=== PATIENT | female | born 1975 | race Caucasian/White ===

== ENCOUNTER 2024-01-13 16:24 | Emergency (ER) | payer OTHER, SELFPAY ==
[2024-01-13 17:18] VITALS: BP 114/93; PULSE 132; RESP 20; TEMP 37.4; O2SAT 98; BMI 29.3
--- NOTE | 2024-01-13 17:19 | ED_ITS ---
HPI - Nausea/Vomiting/Diarrhea General Chief complaint: Nausea/Vomiting/Diarrhea Stated complaint: vomiting 4 days/diabetic type1 Time Seen by Provider: 01/13/24 22:03 Source: patient Mode of arrival: ambulatory Limitations: no limitations History of Present Illness HPI Narrative: Patient comes to the emergency room complaining of nausea and vomiting. Patient states that she is known to be diabetic type 1, tries to keep her glucose well under control. Patient states that occasionally she gets gastroparesis but today she vomited more than usual. Patient denies significant abdominal pain, no diarrhea. Denies URI or UTI symptoms Related Data Allergies Allergy/AdvReac Type Severity Reaction Status Date / Time acetaminophen [From Tylox] Allergy Unknown Verified 01/13/24 17:23 oxycodone [From Tylox] Allergy Unknown Verified 01/13/24 17:23 prochlorperazine Allergy Unknown Verified 01/13/24 17:23 [From Compazine] morphine AdvReac Vomiting Verified 01/13/24 17:23 Sulfa (Sulfonamide AdvReac Vomiting Verified 01/13/24 17:23 Antibiotics) Review of Systems 2 Review of Systems: Constitutional : No Weight loss, No Fever, No Chills, No Night Sweats, No Fatigue, No Malaise ENT/Mouth : No Hearing loss, No Ear Pain, No Nasal Congestion, No Sinus Pain, No Hoarseness, No sore throat, No Rhinorrhea, No Swallowing Difficulty Eyes: No Eye Pain, No Swelling, No Redness, No Foreign Body, No Discharge, No Vision Changes Cardiovascular : No Chest Pain, No SOB, No Dyspnea on Exertion, No Orthopnea, No Edema, No Palpitations Respiratory : No Cough, No Sputum, No Wheezing, No Smoke Exposure, No Dyspnea Gastrointestinal : Complaining of nausea and vomiting, No Diarrhea, No Constipation, No abdominal Pain, No Hematochezia, No Melena Genitourinary : no irregular bleeding, No Dysuria, No Urinary Frequency, No Hematuria, No Urinary Incontinence, No Urgency, No Flank Pain, No Urinary Flow Changes, No Hesitancy Musculoskeletal : No joint pain, No Myalgias, No Joint Swelling Skin : No Skin Lesions, No rash Neuro : No Weakness, No Numbness, No Paresthesias, No Loss of Consciousness, No Dizziness, No Headache Psych : No Anxiety/Panic, No Depression, No SI/HI/AH/VH, No Social Issues, Heme/Lymph: No Bruising, No Bleeding,No Lymphadenopathy Endocrine : No Polyuria, No Polydipsia, No Temperature Intolerance [facility] Past Medical History Medical History (Updated 01/13/24 @ 23:47 by Rebecca Hernandez MD) Type 1 diabetes Social History Social History Advance Directives: No Advance Directives Information Provided: No Physical Exam 2 Vital Signs: Vital Signs: Last Vital Signs Temp 98.0 F 01/13/24 20:51 Pulse 104 H 01/13/24 20:51 Resp 18 01/13/24 20:51 BP 114/93 H 01/13/24 20:51 Pulse Ox 96 01/13/24 20:51 O2 Del Method Room Air 01/13/24 20:51 BMI result Body Mass Index 29.3 Course Course Course Narrative: This is a Rapid Medical Examination (RME) in triage, full HPI, ROS, assessment and plan per primary provider in the Main ED. Eli is a 48 year old female with DMI, who reports vomiting for 4 days. No diarrhea or abdominal pain. Per patient and CGM, BS is 355. Normally BS are well-controlled. Past few days ~150's. Unable to tolerate PO, reports vomiting after eating or drinking. Plan: labs, IVF, r/o DKA Medications Administered Discontinued Medications Generic Name Dose Route Start Last Admin Trade Name Freq PRN Reason Stop Dose Admin Sodium Chloride 1,000 mls @ 999 mls/hr 01/13/24 17:30 01/13/24 21:26 Ns IV 01/13/24 18:30 Infused .Q1H1M [facility] Infusion Sodium Chloride 1,000 mls @ 999 mls/hr 01/13/24 18:30 01/13/24 23:19 Ns IVCONT 01/13/24 19:30 Infused .Q1H1M [facility] In[facility] Metoclopramide HCl 10 mg 01/13/24 17:21 01/13/24 19:19 Metoclopramide Hcl 10 Mg/2 Ml Vial IVPUSH 01/13/24 17:22 10 mg ONCE ONE Administration Ondansetron HCl 4 mg 01/13/24 22:13 01/13/24 22:45 Ondansetron Hcl 4 Mg/2 Ml Vial IVPUSH 01/13/24 22:14 4 mg ONCE ONE Administration Medical Decision Making Medical Decision Making MDM Narrative: -my interpretation of labs normal hematology, chemistry shows a creatinine of 2.17, no previous labs for comparison, glucose 235, anion gap open 25, LFTs within normal limits, magnesium normal, beta hydroxybutyrate 5.4 -patient received 2 L of lactated Ringer's we will repeat the beta hydroxybutyrate -patient states that she has never been told anything about having creatinine function that is elevated. -discussed with the patient that after 2 L, her kidneys did improve but not as much as we were expecting it to. Her beta hydroxybutyrate increased instead of improving, the anion gap is still open -discussed with the patient that she needs more fluids, insulin, and I recommend admission to the hospital. -patient declined, states that she has to be in the airport in 3 hours and still has to go home and pack for the trip. This is her honeymoon trip. States she does not want to miss it. -patient leaving against medical advice, patient instructed to drink plenty of fluids with electrolytes and check her electrolyte function with her primary care physician as soon as she returns. Also, to seek medical attention if needed during a trip Differential Diagnosis Differential Diagnoses: The differential diagnosis associated with the presentation includes (Dehydration, acute kidney injury, DKA) Admission/Observation Consideration of admission/observation: Escalation of care including admission/observation considered (Admission recommended, patient declined) Lab Data [facility] Lab Attestation statement: I reviewed the patient's lab results. 01/13/24 17:35 01/13/24 22:38 Labs: Lab Results 01/13/24 01/13/24 01/13/24 Range/Units 17:35 17:39 19:19 WBC 7.1 (4.8-10.8) X10*3/uL RBC 4.27 (4.20-5.50) X10*6/uL Hgb 13.4 (12.0-16.0) g/dl Hct 39.2 (37.0-47.0) % MCV 91.8 (80.0-98.0) fL MCH 31.4 (27.0-33.0) pg MCHC 34.2 (31.0-35.0) g/dl RDW 12.4 (11.0-16.0) % Plt Count 305 (160-400) X10*3/uL MPV 9.7 (9.4-12.3) fL Immature Gran % (Auto) 0.3 (0.0-0.4) % Neut % (Auto) 79.7 H (45-73) % Lymph % (Auto) 12.1 L (20-40) % [place] % (Auto) 7.3 (2-11) % Eos % (Auto) 0.0 (0-4) % Baso % (Auto) 0.6 (0-2) % Lymph # (Auto) 0.9 L (1.2-4.9) X10*3/uL [place] # (Auto) 0.5 (0.1-1.2) X10*3/uL Eos # (Auto) 0.0 (0.0-0.4) X10*3/uL Baso # (Auto) 0.0 (0.0-0.2) X10*3/uL Abs Immat Gran (auto) 0.02 (0.00-0.03) X10*3/uL Absolute Neuts (auto) 5.7 (2.0-8.3) x10*3/uL Absolute Nucleated RBC 0.000 (0.0-0.012) X10*3/uL Nucleated RBC % (auto) 0.0 (0.0-0.2) /100WBC VBG pH 7.47 H (7.32-7.43) VBG pCO2 36 mmHg VBG pO2 59 mmHg VBG HCO3 27 H (22-26) mmol/L VBG O2 Saturation 89.0 % VBG Base Excess 3.5 mmol/L Sodium 137 (135-145) mmol/L Potassium 3.8 (3.3-5.1) mmol/L Chloride 91 L (96-108) mmol/L Carbon Dioxide 25 (22-29) mmol/L Anion Gap 25 H (12-20) BUN 39 H (9-16) mg/dL Creatinine 2.17 H (0.5-1.4) mg/dL Estim Creat Clear Calc 26.9 Estimated GFR 24 POC Glucose 235 H (60-115) mg/dL Random Glucose 272 H (60-115) mg/dL Calcium 9.6 (8.4-10.2) mg/dL Magnesium 2.0 (1.6-2.6) mg/dL Total Bilirubin 0.9 (0.0-1.0) mg/dL Direct Bilirubin 0.3 (0.0-0.5) mg/dL AST 26 (5-31) U/L ALT 20 (0-31) U/L Alkaline Phosphatase 108 (39-117) U/L B-Natriuretic Peptide (<100) pg/mL Total Protein 7.8 (6.5-8.0) g/dL Albumin 4.5 (3.5-5.0) g/dL Lipase 20 (8-78) U/L Beta-Hydroxybutyrate 5.14 H (0.02-0.27) mmol/L 01/13/24 01/13/24 Range/Units 22:17 22:38 WBC (4.8-10.8) X10*3/uL RBC (4.20-5.50) X10*6/uL Hgb (12.0-16.0) g/dl Hct (37.0-47.0) % MCV (80.0-98.0) fL MCH (27.0-33.0) pg MCHC (31.0-35.0) g/dl RDW (11.0-16.0) % Plt Count (160-400) X10*3/uL MPV (9.4-12.3) fL Immature Gran % (Auto) (0.0-0.4) % Neut % (Auto) (45-73) % Lymph % (Auto) (20-40) % [place] % (Auto) (2-11) % Eos % (Auto) (0-4) % Baso % (Auto) (0-2) % Lymph # (Auto) (1.2-4.9) X10*3/uL [place] # (Auto) (0.1-1.2) X10*3/uL Eos # (Auto) (0.0-0.4) X10*3/uL Baso # (Auto) (0.0-0.2) X10*3/uL Abs Immat Gran (auto) (0.00-0.03) X10*3/uL Absolute Neuts (auto) (2.0-8.3) x10*3/uL Absolute Nucleated RBC (0.0-0.012) X10*3/uL Nucleated RBC % (auto) (0.0-0.2) /100WBC VBG pH (7.32-7.43) VBG pCO2 mmHg VBG pO2 mmHg VBG HCO3 (22-26) mmol/L VBG O2 Saturation % VBG Base Excess mmol/L Sodium 137 (135-145) mmol/L Potassium 4.0 (3.3-5.1) mmol/L Chloride 96 (96-108) mmol/L Carbon Dioxide 21 L (22-29) mmol/L Anion Gap 24 H (12-20) BUN 41 H (9-16) mg/dL Creatinine 1.87 H (0.5-1.4) mg/dL Estim Creat Clear Calc 31.3 Estimated GFR 29 POC Glucose (60-115) mg/dL Random Glucose 283 H (60-115) mg/dL Calcium 8.0 L D (8.4-10.2) mg/dL Magnesium (1.6-2.6) mg/dL Total Bilirubin (0.0-1.0) mg/dL Direct Bilirubin (0.0-0.5) mg/dL AST (5-31) U/L ALT (0-31) U/L Alkaline Phosphatase (39-117) U/L B-Natriuretic Peptide 23 (<100) pg/mL Total Protein (6.5-8.0) g/dL Albumin (3.5-5.0) g/dL Lipase (8-78) U/L Beta-Hydroxybutyrate 6.21 H (0.02-0.27) mmol/L Independent Historian Clinical information obtained from an independent historian. History obtained from or confirmed by: Spouse Critical Care Time Critical Care Time Critical Care Time: Yes Total Critical Care Time: 75 Attestation: I have personally provided critical care time. Time includes review of lab data, radiology results, discussion with consultants, and monitoring for potential decompensation. Intervention performed as documented. Discharge Plan Discharge Clinical Impression: Vomiting, Acute dehydration, BRIELLE (acute kidney injury) Patient Disposition: Left Against Medical Advice Instructions: Liquids and Hydration for Athletes (ED), Acute Kidney Injury (DC) Additional Instructions: Please follow-up with your primary care physician tomorrow. If you have any worsening or new symptoms, please return to the emergency room or call 911
[2024-01-13 17:43] LABS: MANUAL DIFF FLAG NO
[2024-01-13 17:45] LABS: VBG Base Excess 3.5 mmol/L; VBG HCO3 27 mmol/L (22-26); VBG pCO2 36 mmHg; VBG pH 7.47 (7.32-7.43); VBG pO2 59 mmHg
[2024-01-13 17:45] LABS: Venous Blood Gas Refer to POC result
[2024-01-13 17:47] LABS: Basophils Percent Auto 0.6 % (0-2); Hematocrit 39.2 % (37.0-47.0); Hemoglobin 13.4 g/dl (12.0-16.0); Imm Gran Abs Auto 0.02 X10*3/uL (0.00-0.03); Imm Gran Pct Auto 0.3 % (0.0-0.4); Lymphocytes Absolute Auto 0.9 X10*3/uL (1.2-4.9); Lymphocytes Percent Auto 12.1 % (20-40); Mean Corpuscular HGB Conc 34.2 g/dl (31.0-35.0); Mean Corpuscular Hemoglobin 31.4 pg (27.0-33.0); Mean Corpuscular Volume 91.8 fL (80.0-98.0); Mean Platelet Volume 9.7 fL (9.4-12.3); Monocytes Absolute Auto 0.5 X10*3/uL (0.1-1.2); Monocytes Percent Auto 7.3 % (2-11); Neutrophils Absolute Auto 5.7 x10*3/uL (2.0-8.3); Neutrophils Percent Auto 79.7 % (45-73); Platelet Count 305 X10*3/uL (160-400); Red Blood Count 4.27 X10*6/uL (4.20-5.50); Red Cell Distribution Width 12.4 % (11.0-16.0); White Blood Count 7.1 X10*3/uL (4.8-10.8)
[2024-01-13 18:06] LABS: Alanine Aminotransferase 20 U/L (0-31); Albumin Level 4.5 g/dL (3.5-5.0); Alkaline Phosphatase 108 U/L (39-117); Anion Gap 25 (12-20); Aspartate Amino Transferase 26 U/L (5-31); Beta-Hydroxybutyrate 5.14 mmol/L (0.02-0.27); Bilirubin Direct 0.3 mg/dL (0.0-0.5); Bilirubin Total 0.9 mg/dL (0.0-1.0); Blood Urea Nitrogen 39 mg/dL (9-16); Calcium 9.6 mg/dL (8.4-10.2); Carbon Dioxide 25 mmol/L (22-29); Chloride 91 mmol/L (96-108); Creatinine Clr Calc Pharmacy 26.9; Estimated Glomerular Filt Rate 24; Glucose Random 272 mg/dL (60-115); Lipase 20 U/L (8-78); Potassium 3.8 mmol/L (3.3-5.1); Sodium 137 mmol/L (135-145); Total Protein 7.8 g/dL (6.5-8.0)
[2024-01-13] MEDS: 0.9 % Sodium Chloride 1,000 ML 999 ML IV (19:18)
[2024-01-13] MEDS: Metoclopramide HCl 10 MG/2 ML VIAL IVPUSH (19:19)
[2024-01-13 19:23] LABS: Glucose, Whole Blood 235 mg/dL (60-115)
[2024-01-13 20:51] VITALS: BP 114/93; PULSE 104; RESP 18; TEMP 36.7; O2SAT 96
[2024-01-13] MEDS: 0.9 % Sodium Chloride 1,000 ML 999 ML IVCONT (21:26)
[2024-01-13 22:39] LABS: Beta-Hydroxybutyrate 6.21 mmol/L (0.02-0.27)
[2024-01-13] MEDS: ondansetron HCL 4 MG/2 ML VIAL IVPUSH (22:45)
[2024-01-13 22:46] LABS: B Type Natriuretic Peptide 23 pg/mL (<100)
[2024-01-13 23:09] LABS: Anion Gap 24 (12-20); Blood Urea Nitrogen 41 mg/dL (9-16); Carbon Dioxide 21 mmol/L (22-29); Chloride 96 mmol/L (96-108); Creatinine Clr Calc Pharmacy 31.3; Estimated Glomerular Filt Rate 29; Glucose Random 283 mg/dL (60-115); Sodium 137 mmol/L (135-145)
[2024-01-13 23:50] VITALS: BP 114/93; PULSE 104; RESP 18; TEMP 36.7; O2SAT 96
== END 2024-01-13 23:52 | disposition left against medical advice (07) ==
PROVIDERS: Physician Assistant; Emergency Provider Emergency Medicine; PCP Nurse Practitioner Adult Health
DX: E86.0 Dehydration (principal); N17.9 Acute kidney failure, unspecified; R11.10 Vomiting, unspecified; E10.9 Type 1 diabetes mellitus without complications; Z88.2 Allergy status to sulfonamides; Z88.5 Allergy status to narcotic agent; Z88.8 Allergy status to other drugs, medicaments and biological substances
CPT/HCPCS: 36415; 80048; 80076; 82010; 82803; 82947; 83690; 83735; 83880; 85025; 99283; J2405; J2765

== ENCOUNTER 2024-03-04 15:37 | Emergency (ER) | payer OTHER, SELFPAY ==
--- NOTE | ~2024-03-04 | XR_ITS ---
EXAMINATION: XR FOOT, LEFT CLINICAL INFORMATION: Left COMPARISON: Left foot pain, injury TECHNIQUE: AP, lateral, and oblique views of the left foot. FINDINGS: No evidence for acute metatarsal fracture or dislocation. Old posttraumatic deformity of the distal fifth metatarsal. Midfoot appears intact. Small lucency is seen in the base of the second metatarsal at 8 to 9 mm likely representing a small cyst. There is a small lucency observed in the medial cuneiform on one view which could potentially reflect a fracture. CT evaluation may be helpful toward clarification. Calcaneus appears intact. XR/XR foot LT min 3V IMPRESSION: Small lucency of the medial cuneiform on one view could reflect a fracture. CT evaluation suggested toward further clarification. Old posttraumatic deformity of the fifth metatarsal. Other incidental findings as noted above.
--- NOTE | ~2024-03-04 | XR_ITS ---
EXAMINATION: XR ANKLE, LEFT CLINICAL INFORMATION: Fall with left ankle injury. COMPARISON: None available. TECHNIQUE: AP, lateral, and mortise views of the left ankle. FINDINGS: No definite evidence for acute fracture or dislocation. Dome of talus appears unremarkable. Posterior distal tibia is intact. No distinct calcaneal fracture seen. Tiny lucency is observed in the medial malleolus at the medial tibiotalar joint on one view, likely reflecting a small vascular groove. XR/XR ankle LT min 3V IMPRESSION: No definite evidence for acute fracture or dislocation.
[2024-03-04 15:59] VITALS: BP 112/69; PULSE 98; RESP 18; TEMP 37.3; O2SAT 96; BMI 30.9
--- NOTE | 2024-03-04 15:59 | ED_ITS ---
HPI - Fall General Chief Complaint: Fall Stated Complaint: Fall today - foot injury Time Seen by Provider: 03/04/24 16:19 History of Present Illness HPI Narrative: patient complains of left foot pain after she jumped off a bed and twisted her ankle and immediately felt pain in her foot this morning No other injury no head injury no neck injury no back pain no chest pain no dizziness no abdominal pain no fainting or feeling faint no other extremity injuries Related Data Allergies Allergy/AdvReac Type Severity Reaction Status Date / Time acetaminophen [From Tylox] Allergy Unknown Verified 03/04/24 16:01 oxycodone [From Tylox] Allergy Unknown Verified 03/04/24 16:01 prochlorperazine Allergy Unknown Verified 03/04/24 16:01 [From Compazine] morphine AdvReac Vomiting Verified 03/04/24 16:01 Sulfa (Sulfonamide AdvReac Vomiting Verified 03/04/24 16:01 Antibiotics) [facility] Past Medical History Source: nursing notes reviewed Medical History (Updated 03/05/24 @ 00:00 by Castillo Lang) Type 1 diabetes Physical Exam Vital Signs: Vital Signs: Last Vital Signs Temp 97.7 F 03/04/24 18:09 Pulse 87 03/04/24 18:09 Resp 16 03/04/24 18:09 BP 115/67 03/04/24 18:09 Pulse Ox 98 03/04/24 18:09 O2 Del Method Room Air 03/04/24 18:09 BMI result Body Mass Index 30.9 general appearance is no distress Head is normocephalic atraumatic Neck is supple nontender The back full range motion No respiratory distress chest wall nontender Extremities the left foot had tenderness some swelling some mild ecchymosis on the medial dorsum of the foot, the ankle had full range of motion there was no ankle swelling, neurovascular intact distal Course Course Course Narrative: This is a Rapid Medical Examination (RME) performed by Henok Sanchez PA-C in triage. Full HPI, ROS, assessment and treatment plan per primary provider in the Main ED. 48 yo female hx of neuropathy and arthritis here for eval of left foot pain s/p fall from height yesterday. admits to standing on her bed while hanging curtains when she lost her balance and fell off the bed, landing on her left foot. reports immediate pain, exacerbated with bearing weight on the left foot. takes naproxen 500mg BID- took this this morning. hx of fracture to lateral aspect of left foot 1 yr ago that did not require surgery. denies numbness/tingling/weakness of LLE. denies head strike or LOC. not on AC. swelling noted to medial aspect of left foot. ttp w/o palpable deformity. 2+ dp pulse. in wheelchair, unable to assess gait d/t pain. Plan: xrs x-ray showed possible medial cuneiform fracture but was not certain There was tenderness directly over that area so was treated as a possible fracture with a walking boot crutches and nonweightbearing and patient will follow with orthopedist Discharge Plan Discharge Clinical Impression: Foot fracture Patient Disposition: Home, Self-Care Additional Instructions: x-ray showed a possible fracture of the medial cuneiform bone When I pressed on the area it hurt quite a bit so it is likely that there is a fracture in that area Follow closely with orthopedist for further evaluation next week The name is provided Nonweightbearing as much as possible, apply ice, elevate leg Tylenol or Motrin as needed for pain Return any time any worse condition or any concerns Referrals: Otf Bear MD [Physician] - ( left medial cuneiform fracture) Interventions: ED Discharge Assessment Last Done: 03/04/24 18:09 Discharge Date/Time: 03/04/24 18:10 Print Language: Kittitian
[2024-03-04 17:00] VITALS: BP 115/67; PULSE 87; RESP 16; TEMP 36.5; O2SAT 98
[2024-03-04 18:09] VITALS: BP 115/67; PULSE 87; RESP 16; TEMP 36.5; O2SAT 98
== END 2024-03-04 18:10 | disposition home or self-care (01) ==
PROVIDERS: Emergency Provider Emergency Medicine; PCP Nurse Practitioner Adult Health
DX: M79.672 Pain in left foot (principal); S92.241A Displaced fracture of medial cuneiform of right foot, initial encounter for closed fracture; W06.XXXA Fall from bed, initial encounter; E10.8 Type 1 diabetes mellitus with unspecified complications; Y93.E9 Activity, other interior property and clothing maintenance; Y92.003 Bedroom of unspecified non-institutional (private) residence as the place of occurrence of the external cause; Y99.9 Unspecified external cause status
CPT/HCPCS: 73610; 73630; 99283; 99284

== ENCOUNTER 2024-03-17 13:08 | Outpatient (AMB) | payer OTHER, SELFPAY ==
--- NOTE | 2024-03-17 13:34 | A.OFFVIS_ITS ---
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 Patient reports that he was on her bed hanging up curtains when she was stepping down her foot kicked the foot board. She presented [place] [facility] [place] x[place] were taken and placed in a walking boot. Currently she has tenderness at the bottom of her foot, stating she has to be careful the way she places her foot down while walking. Her swelling has improved which has helped with the pain. She has occasional pain in her toes. Hx of neuropathy. Allergies acetaminophen [From Tylox] Allergy (Verified 03/17/24 13:49) Unknown oxycodone [From Tylox] Allergy (Verified 03/17/24 13:49) Unknown prochlorperazine [From Compazine] Allergy (Verified 03/17/24 13:49) Unknown morphine Adverse Reaction (Verified 03/17/24 13:49) Vomiting Sulfa (Sulfonamide Antibiotics) Adverse Reaction (Verified 03/17/24 13:49) Vomiting Medication List - Last Reconciled 03/17/24 by Inderjit Pelaez PA-C atorvastatin 20 mg PO DAILY duloxetine 60 mg PO DAILY insulin aspart (niacinamide) 100 unit/mL (Fiasp U-100 Insulin) subcut insulin pump cart,automated,BT (Omnipod 5 G6 Pods (Gen 5) subcutaneous cartridge) As directed leflunomide 20 mg PO DAILY naproxen 500 mg PO BID valbenazine (Ingrezza) 40 mg PO DAILY valsartan 80 mg PO DAILY HPI 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 She reports she was on her bed hanging up curtains when she stepped down and kicked the foot board, 03/04/24. She was seen at ER where x-rays were performed and she was placed in a walking boot. She states she has improvement in her swelling however she continues to have tenderness at the bottom of her foot and she has to be careful with stepping her foot while walking. She also reports occasional pain in her toes. She has a history of neuropathy. [facility] Medical History (Updated 03/17/24 @ 14:07 by Inderjit Pelaez PA-C) Type 1 diabetes Review of Systems Const All systems reviewed & are unremarkable except as noted in HPI and below Physical Exam Vital Signs: BMI result Body Mass Index 30.9 Const General: cooperative and no acute distress Orientation/consciousness: patient oriented x3 Resp Effort & Inspection: normal respiratory effort and able to speak in complete sentences Cardio Peripheral pulses: Peripheral pulses 2+ throughout Neuro General: patient oriented x3 Extrem Other: Left foot skin intact. There is mild tenderness along the edge of the 1st metatarsal. Sensation intact. EHL intact. No pain along the mediolateral malleolus. Neurovascularly intact. Office Procedures Fracture Care Fracture Billing Code: Fracture Billing Code Results Reviewed Results Reviewed: xrays of the left foot obtained on 03/04/24 show subtle fracture at the base of the 1st metatarsal Assessment & Plan Assessment & Plan (1) Fracture of 1st metatarsal: Code(s): S92.313A - Displaced fracture of first metatarsal bone, unspecified foot, initial encounter for closed fracture Category: Medical Plan She will continue with the boot weight bearing as tolerated. I would expect she will take 6-8 weeks till she feels close to full resolution to her symptoms. She will transition to a regular street shoe as symptoms allow. I did explain that she will experience intermittent swelling and discomfort with activities. If symptoms persist or worsen, she will contact the office, otherwise follow-up as needed. Patient Instructions: Scribed for Inderjit Pelaez PA-C, by Omari Carter medical science liaison, on 03/17/2024 at 1:30 PM EST.? I, Inderjit Pelaez PA-C, have personally reviewed and agree with the information entered by the scribe. Coding Level of Care Code New Pt Level 3 (44660) Diagnoses Fracture of 1st metatarsal S92.313A CPT Codes Fracture Care - Fracture Billing Code: Fracture Billing Code ([id number])
[2024-03-17 13:50] VITALS: BMI 30.9
== END 2024-03-17 14:02 | disposition home or self-care (01) ==
PROVIDERS: PCP Nurse Practitioner Adult Health; Visit Provider Physician Assistant
DX: S92.312A Displaced fracture of first metatarsal bone, left foot, initial encounter for closed fracture (principal)
CPT/HCPCS: 99203

== ENCOUNTER → 2024-03-17 13:08 | Outpatient (BNVA) | payer OTHER, SELFPAY | PROVIDERS: PCP Nurse Practitioner Adult Health; Visit Provider Physician Assistant ==

== ENCOUNTER 2024-05-24 13:15 | Emergency (ER) | payer OTHER, SELFPAY ==
--- NOTE | ~2024-05-24 | CT_ITS ---
EXAMINATION: CT cervical spine wo IV con, CT facial bones wo IV con, CT head/brain wo IV con INDICATION INFORMATION: head injury, pain COMPARISON: None TECHNIQUE: Separate noncontrast CT examinations of the head, face, and cervical spine were performed. Coronal and sagittal images were created for each examination at the technologist workstation. This CT examination was performed using dose optimization techniques as appropriate, variously including the following: *Automated exposure control *Adjustment of mA and/or kV according to patient size (this includes techniques or standardized protocols for targeted exams where dose is matched to indication/reason for exam; i.e. extremities or head) *Use of iterative reconstruction technique DLP: 1198 mGy-cm FINDINGS: Head: No acute osseous or soft tissue abnormality. The mastoid air cells and visualized portions of the paranasal sinuses are well aerated. There is no evidence of acute intracranial hemorrhage or territorial infarction. No abnormal mass effect or midline shift is seen. [place] to white matter differentiation is well preserved. Left para midline posterior fossa arachnoid cyst. No other extra-axial fluid collections are identified. No hydrocephalus. No significant volume loss. Patchy periventricular and deep white matter hypoattenuation is consistent with mild small vessel ischemic changes. Facial Bones: Soft tissue laceration/defect overlying the midline chin/parasymphyseal mandible, without underlying fracture identified. There is no evidence of an acute facial bone fracture. The paranasal sinuses are well aerated. No significant dental disease is visualized. The orbits are unremarkable in appearance. Cervical spine: There is no evidence of acute cervical spine fracture. Vertebral bodies remain normal in height. Loss of the usual cervical spine lordosis. Minimal, 2 mm anterolisthesis of C3 on C4 and C7 on T1. Moderate multilevel loss of disc space height, most pronounced at C4-C5, C5-C6, and C6-C7, where there are large disc osteophyte complexes and mild osseous neural foraminal narrowing. No pre- or paravertebral soft tissue abnormality is identified. Visualized portions of the lung apices are unremarkable. The thyroid gland is unremarkable. CT/CT cervical spine wo IV con IMPRESSION: 1. Midline chin soft tissue defect/laceration without underlying mandibular/facial fracture. Otherwise, no acute traumatic abnormality of the brain, face, or cervical spine. 2. Moderate multilevel degenerative cervical spondylosis, most pronounced at C4-C5, C5-C6, and C6-C7, where there is likely mild osseous spinal canal narrowing. 3. Mild microvascular white matter disease.
[2024-05-24 13:31] VITALS: BP 98/47; PULSE 86; RESP 18; TEMP 36.7; O2SAT 95; BMI 29.5
--- NOTE | 2024-05-24 13:36 | ECG_ITS ---
Test Reason : syncope Blood Pressure : / mmHG Vent. Rate : 086 BPM Atrial Rate : 086 BPM P-R Int : 096 ms QRS Dur : 066 ms QT Int : 370 ms P-R-T Axes : 073 052 052 degrees QTc Int : 442 ms Sinus rhythm with short IN Otherwise normal ECG No previous ECGs available Referred By: uJne Amato Electronically Signed By:SRIDEVI FRANCO
--- NOTE | 2024-05-24 13:36 | ED.GENADULT ---
HPI - General Adult General Chief complaint: Syncope Stated complaint: chin lac passed out Time Seen by Provider: 05/24/24 22:19 History of Present Illness ED Provider: Imani MORGAN narrative: The patient is a 49-year-old woman with a history of type 2 diabetes. She says that she was started on valsartan by her sewage screen operator Dr. Higginbotham a couple of years ago for proteinuria. She was not started on it for hypertension. She says that over the last 4 weeks she has had worsening dizziness when standing and has had several episodes of syncope that are preceded by a sense of dizziness. Some days she has several episodes of syncope. Today she had several episodes of syncope and on 1 occasion struck her chin and sustained a small laceration under her chin. These episodes of syncope are not associated with chest pain or shortness of breath. No nausea or vomiting. No pleuritic pain. Imaging studies and labs has been ordered at triage. Related Data Home Medications ?Medication ?Instructions ?Recorded ?Confirmed atorvastatin 20 mg tablet 20 mg PO DAILY 03/17/24 03/17/24 duloxetine 60 mg capsule,delayed 60 mg PO DAILY 03/17/24 03/17/24 release insulin aspart (niacinamide) subcut 03/17/24 03/17/24 (U-100) 100 unit/mL subcutaneous solution (Fiasp U-100 Insulin) insulin pump cart,automated,BT #5 ea 03/17/24 03/17/24 (Omnipod 5 G6 Pods (Gen 5) subcutaneous cartridge) leflunomide 20 mg tablet 20 mg PO DAILY 03/17/24 03/17/24 naproxen 500 mg tablet 500 mg PO BID 03/17/24 03/17/24 valbenazine 40 mg capsule 40 mg PO DAILY 03/17/24 03/17/24 (Ingrezza) valsartan 80 mg tablet 80 mg PO DAILY 03/17/24 03/17/24 Allergies Allergy/AdvReac Type Severity Reaction Status Date / Time acetaminophen [From Tylox] Allergy Unknown Verified 05/24/24 13:37 oxycodone [From Tylox] Allergy Unknown Verified 05/24/24 13:37 prochlorperazine Allergy Unknown Verified 05/24/24 13:37 [From Compazine] codeine AdvReac Vomiting Verified 05/24/24 13:37 morphine AdvReac Vomiting Verified 05/24/24 13:37 Sulfa (Sulfonamide AdvReac Vomiting Verified 05/24/24 13:37 Antibiotics) Review of Systems Review of Systems: Yes all other systems are reviewed and are negative [facility] Past Medical History Medical History (Updated 05/26/24 @ 00:03 by Castillo Lang) Type 1 diabetes Social History Social History Alcohol intake: never Smoked in Last 30 Days: No Use of substances other than those prescribed or required for medical reasons: No Advance Directives: No Advance Directives Information Provided: No Do you have a plan to hurt others: No Plan Patient : No Physical Exam ED Vital Signs: Vital Signs - 24 hr 05/24/24 13:31 05/24/24 17:35 05/24/24 22:34 Temperature 98.1 F 98.1 F Pulse Rate 86 89 93 Respiratory Rate 18 18 Blood Pressure 98/47 L 95/55 L 125/69 Pulse Oximetry 95 97 Oxygen Delivery Method Room Air Room Air 05/24/24 22:35 05/24/24 22:35 05/24/24 22:56 Temperature 98.1 F Pulse Rate 98 104 H 93 Respiratory Rate 17 Blood Pressure 139/71 136/75 125/69 Pulse Oximetry 96 Oxygen Delivery Method Room Air BMI result Body Mass Index 29.5 Const Other: The patient is awake, alert, pleasant, cooperative. She has a small laceration under her chin. She does not appear in acute distress. HENMT Other: There is a 2 cm laceration under the chin. This is horizontally oriented. It is a full-thickness laceration. The patient seems to have some discomfort with movement of her jaw but no definite focal area of tenderness. Dentition seems intact. The face is symmetrical. Tongue is midline. No raccoon eyes. No darby sign. Eyes General: appearance normal, both eyes and all related structures Neck Other: Some mild diffuse neck tenderness. No JVD. Resp Effort & Inspection: normal respiratory effort Auscultation: clear to auscultation bilaterally Cardio Rate: regular rate Rhythm: regular rhythm Heart sounds: S1 normal heart sound present and S2 normal heart sound present Skin Other: There is a 2 cm horizontally oriented full-thickness laceration under the chin. Skin is otherwise unremarkable. Neuro Other: The patient is awake, alert, appropriate. Normal cognition and orientation. Cranial nerves are intact. She moves her extremities normally. She seems neurologically intact. Extrem General: Yes no pedal edema and Yes no calf tenderness Course Course Course Narrative: RME performed by June Amato PA-C. Patient is a 49 year old assigned female at presenting to the emergency department with multiple episodes of syncope and a head injury. Patient states that she has passed out multiple times over the last hour. Detailed physical exam and review of systems are deferred to the certified paralegal. EKG, labs, imaging, and swabs ordered. talent sourcer made aware of patient. Working on room. Medications Administered Discontinued Medications Generic Name Dose Route Start Last Admin Trade Name Freq PRN Reason Stop Dose Admin Bacitracin 1 appl 05/24/24 23:29 05/24/24 23:47 Bacitracin Oint 0.9 Gm Packet TOPICAL 05/24/24 23:30 Not Given ONCE ONE Protocol Cephalexin HCl 1,000 mg 05/24/24 22:58 05/24/24 23:45 Cephalexin 500 Mg Capsule PO 05/24/24 22:59 1,000 mg ONCE ONE Administration Sodium Chloride 1,000 mls @ 999 mls/hr 05/24/24 22:30 05/24/24 22:49 Ns IV 05/24/24 23:30 Not Given .Q1H1M NYASIA Lidocaine HCl 5 ml 05/24/24 22:37 05/24/24 23:47 Lidocaine Hcl 1 % 20 Ml Vial INFILTRATI 05/24/24 22:38 5 ml ONCE ONE Administration Procedures Laceration Laceration 1: Site: face Size (cm): 3 Description: linear Depth: simple, single layer Local Anesthetic: lidocaine 1% Amount of anesthesia used (mL): 4 Number of sutures: 6 Technique: simple, interrupted Medical Decision Making Medical Decision Making MDM Narrative: The patient is a 49-year-old woman with a history of type 2 diabetes who was on valsartan not for hypertension but for proteinuria. She describes multiple episodes over the last several weeks of dizziness and episodes of fainting. The description of these episodes suggests an orthostatic etiology. All of her episodes of syncope are preceded by a sense of dizziness or lightheadedness. Today she sustained a laceration to her chin. The laceration was the dressed in the usual fashion with sutures. The wound was closed with 6 simple interrupted stitches with good wound edge approximation using standard wound closure techniques. She was given 1 g of cephalexin orally for wound infection prophylaxis. I had intended to administer 1 L of IV normal saline but IV access was very difficult and I did not feel it was imperative so this was abandoned. Overall my impression is that the patient has been having orthostatic episodes of syncope likely secondary to her use of an antihypertensive, valsartan. I think the most appropriate 1st step in managing this person's syncope syndrome would be to stop the valsartan. She will therefore be discharged with advice to stop her valsartan and to be very careful if she feels any sense of lightheadedness when she stands upper is upright. Wound care instructions were provided. Sutures should come out in 1 week. She should follow up with her PCP and her sewage screen operator. Lab Data 05/24/24 14:02 05/24/24 14:02 Labs: Lab Results 05/24/24 05/24/24 Range/Units 14:02 19:29 WBC 6.5 (4.8-10.8) X10*3/uL RBC 3.85 L (4.20-5.50) X10*6/uL Hgb 12.3 (12.0-16.0) g/dl Hct 36.2 L (37.0-47.0) % MCV 94.0 (80.0-98.0) fL MCH 31.9 (27.0-33.0) pg MCHC 34.0 (31.0-35.0) g/dl RDW 12.6 (11.0-16.0) % Plt Count 239 (160-400) X10*3/uL MPV 10.1 (9.4-12.3) fL Immature Gran % (Auto) 0.2 (0.0-0.4) % Neut % (Auto) 62.9 (45-73) % Lymph % (Auto) 24.2 (20-40) % [place] % (Auto) 8.4 (2-11) % Eos % (Auto) 3.5 (0-4) % Baso % (Auto) 0.8 (0-2) % Lymph # (Auto) 1.6 (1.2-4.9) X10*3/uL [place] # (Auto) 0.6 (0.1-1.2) X10*3/uL Eos # (Auto) 0.2 (0.0-0.4) X10*3/uL Baso # (Auto) 0.1 (0.0-0.2) X10*3/uL Abs Immat Gran (auto) 0.01 (0.00-0.03) X10*3/uL Absolute Neuts (auto) 4.1 (2.0-8.3) x10*3/uL Absolute Nucleated RBC 0.000 (0.0-0.012) X10*3/uL Nucleated RBC % (auto) 0.0 (0.0-0.2) /100WBC PT 12.3 (11.1-13.3) SEC INR 1.0 (0.9-1.1) Sodium 141 (135-145) mmol/L Potassium 3.8 (3.3-5.1) mmol/L Chloride 105 (96-108) mmol/L Carbon Dioxide 24 (22-29) mmol/L Anion Gap 16 (12-20) BUN 35 H (9-16) mg/dL Creatinine 2.22 H (0.5-1.4) mg/dL Estim Creat Clear Calc 26.1 Estimated GFR 23 Random Glucose 152 H (60-115) mg/dL Calcium 9.7 D (8.4-10.2) mg/dL Magnesium 1.9 (1.6-2.6) mg/dL Total Bilirubin 0.5 (0.0-1.0) mg/dL AST 25 (5-31) U/L ALT 15 (0-31) U/L Alkaline Phosphatase 76 (39-117) U/L Troponin I High Sens 4.0 3.5 (<3.5-17.0) ng/L Total Protein 7.0 (6.5-8.0) g/dL Albumin 4.2 (3.5-5.0) g/dL Urine Color Yellow Urine Appearance Cloudy Urine pH 5.5 (5.0-9.0) Ur Specific [place] 1.020 (1.005-1.025) Urine Protein 30 (1+) H (Neg-Trace) mg/dL Urine Glucose (UA) Negative (Negative) mg/dL Urine Ketones Trace (Negative) mg/dL Urine Blood Negative (Negative) Urine Nitrite Negative (Negative) Ur Leukocyte Esterase Negative (Negative) Urine RBC 0-2 (0-2) /HPF Urine WBC 6-10 (0-5) /HPF Ur Squamous Epith Cells 3-5 (0-2) /HPF Urine Bacteria 1+ (None Seen) Epithelial Casts Present Hyaline Casts 3-5 (0-2) /LPF Granular Casts Present Influenza Type A (PCR) NEGATIVE (Negative) Influenza Type B (PCR) NEGATIVE (Negative) RSV RNA Qual (PCR) NEGATIVE (Negative) SARS-CoV-2 RNA (RT-PCR) NEGATIVE (Negative) Independent Interpretation I performed an independent interpretation of an: EKG Interpretation: EKG at 13:51 shows sinus rhythm with a short MS (MS of 96 milliseconds) ventricular rate is 86 beats per minute no ischemic changes. Discharge Plan Discharge Clinical Impression: Syncope due to orthostatic hypotension, Chin laceration Patient Disposition: Home, Self-Care Instructions: Laceration (ED), Syncope (ED) Additional Instructions: I think that your frequent episodes of fainting are probably related to low blood pressure. When a person faint because of low blood pressure we call this orthostatic syncope. I think it would be reasonable to stop taking the valsartan you have been taking. My hope is that if you stop the valsartan your blood pressure will be higher and you will not be prone to feeling dizzy and fainting. With regard to the sutures in your chin please keep the wound clean and dry. You may shower after 24 hours. Apply bacitracin 2 times a day with Band-Aid changes. After 24 hours you may simply keep it covered with a Band-Aid. Please call your doctor's office in the morning to set up a follow up appointment next Friday or Friday for suture removal. Please stay in touch with your regular doctors about your fainting and your blood pressure and the stopping of your valsartan. Return to the emergency room if you feel significantly worse. Prescriptions: No Action leflunomide 20 mg tablet 20 mg PO DAILY naproxen 500 mg tablet 500 mg PO BID duloxetine 60 mg capsule,delayed release(DR/EC) 60 mg PO DAILY valsartan 80 mg tablet 80 mg PO DAILY atorvastatin 20 mg tablet 20 mg PO DAILY Ingrezza 40 mg capsule 40 mg PO DAILY (DME) Omnipod 5 G6 Pods (Gen 5) Cartridge See Rx Instructions subcut .MEDSUPPLY Qty: 5 Rx Instructions: As directed Fiasp U-100 Insulin 100 unit/mL solution subcut Referrals: Vicente Higginbotham MD [Physician] - (Orthostatic syncope) Elsa Roman NP [Primary Care Provider] - (Orthostatic syncope, chin laceration) Interventions: ED Discharge Assessment Last Done: 05/25/24 00:04 Discharge Date/Time: 05/24/24 23:49 Print Language: Danish
[2024-05-24 14:16] LABS: MANUAL DIFF FLAG NO
[2024-05-24 14:19] LABS: Appearance Urine Cloudy; Basophils Absolute Auto 0.1 X10*3/uL (0.0-0.2); Basophils Percent Auto 0.8 % (0-2); Color Urine Yellow; Eosinophils Absolute Auto 0.2 X10*3/uL (0.0-0.4); Eosinophils Percent Auto 3.5 % (0-4); Glucose Urine UA Negative (Negative); Hematocrit 36.2 % (37.0-47.0); Hemoglobin 12.3 g/dl (12.0-16.0); Imm Gran Abs Auto 0.01 X10*3/uL (0.00-0.03); Imm Gran Pct Auto 0.2 % (0.0-0.4); Leukocyte Esterase Urine Negative (Negative); Lymphocytes Absolute Auto 1.6 X10*3/uL (1.2-4.9); Lymphocytes Percent Auto 24.2 % (20-40); Mean Corpuscular Hemoglobin 31.9 pg (27.0-33.0); Mean Platelet Volume 10.1 fL (9.4-12.3); Monocytes Absolute Auto 0.6 X10*3/uL (0.1-1.2); Monocytes Percent Auto 8.4 % (2-11); Neutrophils Absolute Auto 4.1 x10*3/uL (2.0-8.3); Neutrophils Percent Auto 62.9 % (45-73); Nitrite Urine Negative (Negative); PH 5.5 (5.0-9.0); Platelet Count 239 X10*3/uL (160-400); Red Blood Count 3.85 X10*6/uL (4.20-5.50); Red Cell Distribution Width 12.6 % (11.0-16.0); UMIC TRIGGER UACC YES; Urine Blood Negative (Negative); Urine Ketones Trace mg/dL (Negative); Urine Protein 30 (1+) mg/dL (Neg-Trace); White Blood Count 6.5 X10*3/uL (4.8-10.8)
[2024-05-24 14:35] LABS: Alanine Aminotransferase 15 U/L (0-31); Albumin Level 4.2 g/dL (3.5-5.0); Alkaline Phosphatase 76 U/L (39-117); Anion Gap 16 (12-20); Aspartate Amino Transferase 25 U/L (5-31); Bilirubin Total 0.5 mg/dL (0.0-1.0); Blood Urea Nitrogen 35 mg/dL (9-16); Calcium 9.7 mg/dL (8.4-10.2); Carbon Dioxide 24 mmol/L (22-29); Chloride 105 mmol/L (96-108); Creatinine Clr Calc Pharmacy 26.1; Estimated Glomerular Filt Rate 23; Glucose Random 152 mg/dL (60-115); Magnesium 1.9 mg/dL (1.6-2.6); Potassium 3.8 mmol/L (3.3-5.1); Sodium 141 mmol/L (135-145)
[2024-05-24 14:58] LABS: Bacteria Urine 1+ (None Seen); Epith (RTE) Cast Present; Granular Casts Urine Present; RBC Urine 0-2 /HPF (0-2); UACC Culture Trigger YES
[2024-05-24 15:17] LABS: Influenza A PCR NEGATIVE (Negative); Influenza B PCR NEGATIVE (Negative); Resp Syncy Virus RNA Qual PCR NEGATIVE (Negative); SARS COV2 PCR INHOUSE NEGATIVE (Negative)
[2024-05-24 17:35] VITALS: BP 95/55; PULSE 89; RESP 18; TEMP 36.7; O2SAT 97
--- NOTE | 2024-05-24 17:37 | PC.NURSE ---
Lab results and scans reviewed with patient and SO, patient at this time is still waiting for a bed; verbal reassurance give to patient and SO.
[2024-05-24 19:44] LABS: Prothrombin Time 12.3 SEC (11.1-13.3)
[2024-05-24 20:00] LABS: Troponin-I High Sensitivity 3.5 ng/L (<3.5-17.0)
[2024-05-24 22:34] VITALS: BP 125/69; PULSE 93
[2024-05-24 22:35] VITALS: BP 136/75; BP 139/71; PULSE 104; PULSE 98
[2024-05-24 22:56] VITALS: BP 125/69; PULSE 93; RESP 17; TEMP 36.7; O2SAT 96
[2024-05-24] MEDS: cephALEXin 500 MG CAPSULE 1000 MG PO (23:45)
[2024-05-24] MEDS: Lidocaine HCl 1 % 20 ML VIAL 5 ML INFILTRATI (23:47)
[2024-05-25 00:04] VITALS: BP 125/69; PULSE 93; RESP 17; TEMP 36.7; O2SAT 96
== END 2024-05-24 23:49 | disposition home or self-care (01) ==
PROVIDERS: Emergency Medicine; Physician Assistant Medical; Emergency Provider Emergency Medicine; PCP Nurse Practitioner Adult Health
DX: S01.81XA Laceration without foreign body of other part of head, initial encounter (principal); R51.9 Headache, unspecified; R55 Syncope and collapse; R94.31 Abnormal electrocardiogram [ECG] [EKG]; R42 Dizziness and giddiness; R53.83 Other fatigue; M54.2 Cervicalgia; W18.39XA Other fall on same level, initial encounter; Y93.89 Activity, other specified; Y92.89 Other specified places as the place of occurrence of the external cause; Y99.8 Other external cause status; Z03.818 Encounter for observation for suspected exposure to other biological agents ruled out; Z79.899 Other long term (current) drug therapy
CPT/HCPCS: 0241U; 12013; 36415; 70450; 70486; 72125; 80053; 81001; 83735; 84484; 85025; 85610; 87086; 93005; 99284

== ENCOUNTER → 2024-05-24 13:36 | Outpatient (BNV) | payer OTHER, SELFPAY | PROVIDERS: Emergency Provider Emergency Medicine; PCP Nurse Practitioner Adult Health; Visit Provider Internal Medicine | DX: R55 Syncope and collapse (principal) | CPT/HCPCS: 93010 ==

== ENCOUNTER 2025-05-15 08:30 | Emergency (ER) | payer OTHER, SELFPAY ==
--- NOTE | ~2025-05-15 | CT_ITS ---
CLINICAL HISTORY: L flank pain CT abdomen and pelvis without contrast Comparison: None provided Findings: No consolidation or effusion. There is pancreatic atrophy. The gallbladder in the rest of the solid organs are unremarkable. There is no evidence of nephrolithiasis or obstructive uropathy. No bowel obstruction, pneumoperitoneum, or pneumatosis. The patient is status post hysterectomy. No acute fracture. IMPRESSION: No acute findings. This document has been electronically signed by: Dragan Echevarria MD on 05/15/2025 10:31:58
[2025-05-15 08:38] VITALS: BP 148/67; PULSE 126; RESP 20; TEMP 36.6; O2SAT 98; BMI 32.2
--- NOTE | 2025-05-15 08:54 | ED.GENADULT ---
HPI - General Adult General Chief complaint: Back Pain/Injury Stated complaint: middle/ lower Back pain for a month Time Seen by Provider: 05/15/25 08:54 Source: patient, RN notes reviewed, old records reviewed and other ([facility] records) Mode of arrival: ambulatory Limitations: no limitations History of Present Illness ED Provider: Marizol HPI narrative: Patient is a 50-year-old female with history of T1DM, diabetic gastropareisis, CKD 3, tardive dyskinesia presenting to emergency department with complaint of left thoracic/flank pain for the past month. States she has seen her PCP and has been told that it is musculoskeletal pain. She has been prescribed oxycodone topical lidocaine patches without any relief. States the pain is interfering with her sleep. Denies any hematuria, dysuria, frequency or other urinary symptoms. Reports baseline nausea and vomiting due to her gastroparesis but denies any increased vomiting or changes. Denies fevers. Denies saddle anesthesia or bowel or bladder incontinence. Denies fall or other recent traumatic injury prior to onset of symptoms. Denies any exacerbating or relieving factors. MD complaint: back pain Onset (ago): month(s) Related Data Home Medications ?Medication ?Instructions ?Recorded ?Confirmed atorvastatin 20 mg tablet 20 mg PO DAILY 03/17/24 03/17/24 duloxetine 60 mg capsule,delayed 60 mg PO DAILY 03/17/24 03/17/24 release insulin aspart (niacinamide) subcut 03/17/24 03/17/24 (U-100) 100 unit/mL subcutaneous solution (Fiasp U-100 Insulin) insulin pump cart,automated,BT #5 ea 03/17/24 03/17/24 (Omnipod 5 G6 Pods (Gen 5) subcutaneous cartridge) leflunomide 20 mg tablet 20 mg PO DAILY 03/17/24 03/17/24 naproxen 500 mg tablet 500 mg PO BID 03/17/24 03/17/24 valbenazine 40 mg capsule 40 mg PO DAILY 03/17/24 03/17/24 (Ingrezza) valsartan 80 mg tablet 80 mg PO DAILY 03/17/24 03/17/24 Previous Rx's ?Medication ?Instructions ?Recorded prednisone 20 mg tablet 20 mg PO DAILY #5 tabs 05/15/25 tizanidine 2 mg capsule 2 mg PO Q8H PRN muscle spasticity 05/15/25 #10 caps Allergies Allergy/AdvReac Type Severity Reaction Status Date / Time acetaminophen (From Tylox) Allergy Unknown Verified 05/15/25 08:39 oxycodone (From Tylox) Allergy Unknown Verified 05/15/25 08:39 prochlorperazine (From Allergy Unknown Verified 05/15/25 08:39 Compazine) codeine AdvReac Vomiting Verified 05/15/25 08:39 morphine AdvReac Vomiting Verified 05/15/25 08:39 Sulfa (Sulfonamide AdvReac Vomiting Verified 05/15/25 08:39 Antibiotics) Review of Systems Review of Systems: As per HPI Yes all other systems are reviewed and are negative Constitutional: Constitutional: Reports as per HPI [facility] Past Medical History Medical History (Updated 05/15/25 @ 11:39 by Candi Fontana NP) Type 1 diabetes Social History Social History Alcohol intake: never Advance Directives: Yes Advance Directives Information Provided: No Advance Directives on File: No Do you have a plan to hurt others: No Plan Physical Exam ED Vital Signs: Vital Signs - 24 hr 05/15/25 08:38 05/15/25 10:14 Temperature 98 F 97.6 F Pulse Rate 126 H 85 Respiratory Rate 20 18 Blood Pressure 148/67 H 145/75 H Pulse Oximetry 98 100 Oxygen Delivery Method Room Air BMI result Body Mass Index 32.2 Vital signs have been reviewed and appear to be correct. Blood pressure normal. Heart rate tachycardic. Respiratory rate normal. Temperature normal. Oxygen saturation normal. Const General: cooperative, healthy appearing and no acute distress Orientation/consciousness: oriented to person, oriented to place, oriented to time and patient oriented x3 Limitations: no limitations HENMT Head: Yes normocephalic and Yes atraumatic Ears: external ears normal General nose exam: Normal external nose present Face and sinus: Yes face symmetric Mouth: oropharynx normal and moist mucous membranes Throat: Yes uvula midline Eyes Pupils: Equal, round and reactive pupils present Neck Neck: Yes normal visual inspection and Yes supple Resp Effort & Inspection: normal respiratory effort and able to speak in complete sentences Auscultation: clear to auscultation bilaterally Cardio Rate: regular rate Rhythm: regular rhythm Heart sounds: S1 normal heart sound present and S2 normal heart sound present GI Palpation (GI): Soft to palpation and nontender Auscultation: normoactive bowel sounds General: Yes no CVA tenderness Back/Spine/Pelvis Back: no CVA tenderness Thoracic/Lumbar Spine: thoracic and lumbar spine normal to inspection, thoraco-lumbar ROM normal, No pain with thoraco-lumbar ROM, No paraspinal muscle tenderness, No thoracic spinal tenderness and No lumbar spinal tenderness Back/spine/pelvis image:  1. reported area of pain per patient, no tenderness to palpation, no rash/erythema Skin General skin exam: elasticity normal and turgor normal Neuro General: oriented to person, oriented to place, oriented to time, patient oriented x3, moves all extremities, no focal motor deficits and CN's II-XI intact bilaterally Cranial nerves: Yes Equal, round and reactive pupils present Cognition (Neuro): normal cognition Extrem General: Yes full ROM, Yes no pedal edema and Yes no calf tenderness Psych Mental Status: mental status grossly normal Affect: normal affect Thought process: Normal thought process present Medications Administered Discontinued Medications Generic Name Dose Route Start Last Admin Trade Name Freq PRN Reason Stop Dose Admin Hydromorphone HCl 1 mg 05/15/25 09:13 05/15/25 10:05 Hydromorphone Hcl 1 Mg/Ml Syringe IVPUSH 05/15/25 09:14 1 mg ONCE ONE Administration Protocol Sodium Chloride 1,000 mls @ 999 mls/hr 05/15/25 09:15 05/15/25 10:05 Ns IV 05/15/25 10:15 999 mls/hr .Q1H1M NYASIA Administration Medical Decision Making Medical Decision Making [facility] Narrative: Patient is a 50-year-old female with history of T1DM, diabetic gastropareisis, CKD 3, tardive dyskinesia presenting to emergency department with complaint of left thoracic/flank pain for the past month. On exam patient is awake, A+Ox3, tachycardic, VS otherwise WNL, afebrile, normal neurological exam without focal deficits, physical exam findings as above. Given reported symptoms and physical exam findings, initial differential includes but is not limited to UTI/pyelonephrosis, BRIELLE, hydronephrosis, renal colic, ureteral calculi, musculoskeletal pain. Labs notable for hyperglycemia without anion gap. Urinalysis is without evidence of infection. CT abdomen pelvis notable for no evidence of obstructing calculi, hydronephrosis or other explanation for patient's symptoms. My interpretation is in agreement with the radiologist's interpretation. Patient reports significant improvement in pain with 1 IV dose of hydromorphone in the emergency department. Discussed with patient that given the ongoing nature of her symptoms, she will not be prescribed additional opiate pain medication at this time. Offered to treat with tizanidine and prednisone, discussed with patient that she should not take tizanidine and cyclobenzaprine combination. Advised follow-up with PCP. Patient states that she has to schedule physical therapy tomorrow. Encouraged patient to schedule PT appointment. Return precautions discussed at bedside. Patient verbalized understanding of and agreement with plan. Differential Diagnosis Differential Diagnoses: The differential diagnosis associated with the presentation includes As per [facility] Admission/Observation Consideration of admission/observation: Escalation of care including admission/observation considered Patient would have been admitted to the hospital had their clinical presentation warranted hospital admission. Lab Data [facility] Lab Attestation statement: I reviewed the patient's lab results. as per [facility] 05/15/25 09:22 05/15/25 09:22 Labs: Lab Results 05/15/25 05/15/25 Range/Units 09:22 11:23 WBC 5.8 (4.8-10.8) X10*3/uL RBC 3.70 L (4.20-5.50) X10*6/uL Hgb 11.4 L (12.0-16.0) g/dl Hct 33.7 L (37.0-47.0) % MCV 91.1 (80.0-98.0) fL MCH 30.8 (27.0-33.0) pg MCHC 33.8 (31.0-35.0) g/dl RDW 13.7 (11.0-16.0) % Plt Count 260 (160-400) X10*3/uL MPV 9.0 L (9.4-12.3) fL Immature Gran % (Auto) 0.2 (0.0-0.4) % Neut % (Auto) 62.0 (45-73) % Lymph % (Auto) 26.5 (20-40) % Rawlins % (Auto) 7.5 (2-11) % Eos % (Auto) 2.9 (0-4) % Baso % (Auto) 0.9 (0-2) % Lymph # (Auto) 1.5 (1.2-4.9) X10*3/uL Rawlins # (Auto) 0.4 (0.1-1.2) X10*3/uL Eos # (Auto) 0.2 (0.0-0.4) X10*3/uL Baso # (Auto) 0.1 (0.0-0.2) X10*3/uL Abs Immat Gran (auto) 0.01 (0.00-0.03) X10*3/uL Absolute Neuts (auto) 3.6 (2.0-8.3) x10*3/uL Absolute Nucleated RBC 0.000 (0.0-0.012) X10*3/uL Nucleated RBC % (auto) 0.0 (0.0-0.2) /100WBC Sodium 141 (135-145) mmol/L Potassium 4.1 (3.3-5.1) mmol/L Chloride 104 (96-108) mmol/L Carbon Dioxide 26 (22-29) mmol/L Anion Gap 15 (12-20) BUN 18 H (9-16) mg/dL Creatinine 1.34 (0.5-1.4) mg/dL Estim Creat Clear Calc 44.8 Estimated GFR 42 Random Glucose 241 H (60-115) mg/dL Calcium 8.9 D (8.4-10.2) mg/dL Total Bilirubin 0.3 (0.0-1.0) mg/dL AST 28 (5-31) U/L ALT 13 (0-31) U/L Alkaline Phosphatase 79 (39-117) U/L Total Protein 6.9 (6.5-8.0) g/dL Albumin 4.2 (3.5-5.0) g/dL Urine Color Yellow Urine Appearance Clear Urine pH 6.0 (5.0-9.0) Ur Specific Vanderbilt >= 1.030 H (1.005-1.025) Urine Protein 30 (1+) H (Neg-Trace) mg/dL Urine Glucose (UA) >=1000 H (Negative) mg/dL Urine Ketones 40 (Negative) mg/dL Urine Blood Negative (Negative) Urine Nitrite Negative (Negative) Ur Leukocyte Esterase Negative (Negative) Urine RBC 0-2 (0-2) /HPF Urine WBC 0-5 (0-5) /HPF Ur Squamous Epith Cells 0-2 (0-2) /HPF Urine Bacteria 1+ (None Seen) Hyaline Casts 0-2 (0-2) /LPF Urine Test NEGATIVE (NEGATIVE) Independent Interpretation I performed an independent interpretation of an: CT Scan Interpretation: CT abdomen pelvis is without evidence of obstructing calculi, hydronephrosis or other obvious cause of patient's symptoms. Radiology Impression Discussion of test interpretation with radiology: I have reviewed the radiologist's reading. Radiologist Impression: CT abdomen and pelvis without contrast Comparison: None provided Findings: No consolidation or effusion. There is pancreatic atrophy. The gallbladder in the rest of the solid organs are unremarkable. There is no evidence of nephrolithiasis or obstructive uropathy. No bowel obstruction, pneumoperitoneum, or pneumatosis. The patient is status post hysterectomy. No acute fracture. IMPRESSION: No acute findings. External Record Review External record reviewed: Inpatient record, Office record and Outpatient record Prescription Management I considered prescription management with: Other Discharge Plan Discharge Clinical Impression: Thoracic back pain Patient Disposition: Home, Self-Care Instructions: Thoracic Pain (ED) Additional Instructions: You were evaluated in the emergency department today for left-sided back pain. Your evaluation including urinalysis, labs, and CT scan did not show evidence of any conditions requiring emergent medical treatment at this time. We recommend that you follow up with your primary care provider and schedule your previously ordered physical therapy. You are being prescribed tizanidine which is a muscle relaxer, do not take this in combination with cyclobenzaprine which is a different also relaxer previously prescribed to you, as this can cause excessive drowsiness. You are also being prescribed a course of prednisone to decrease inflammation. Please note that the prednisone can increase your blood glucose levels while you are taking it. Return to the emergency department if you experience worsening back pain, difficulty walking, fevers, numbness, tingling, incontinence, groin numbness or tingling, or any other concerning symptoms. Prescriptions: New prednisone 20 mg tablet 20 mg PO DAILY Qty: 5 0RF tizanidine 2 mg capsule 2 mg PO Q8H PRN (Reason: muscle spasticity) Qty: 10 0RF No Action leflunomide 20 mg tablet 20 mg PO DAILY naproxen 500 mg tablet 500 mg PO BID duloxetine 60 mg capsule,delayed release(DR/EC) 60 mg PO DAILY valsartan 80 mg tablet 80 mg PO DAILY atorvastatin 20 mg tablet 20 mg PO DAILY Ingrezza 40 mg capsule 40 mg PO DAILY (DME) Omnipod 5 G6 Pods (Gen 5) Cartridge See Rx Instructions subcut .MEDSUPPLY Qty: 5 Rx Instructions: As directed Fiasp U-100 Insulin 100 unit/mL solution subcut Print Language: Welsh
[2025-05-15 09:27] LABS: Hematocrit 33.7 % (37.0-47.0); Hemoglobin 11.4 g/dl (12.0-16.0); Imm Gran Abs Auto 0.01 X10*3/uL (0.00-0.03); Imm Gran Pct Auto 0.2 % (0.0-0.4); Lymphocytes Absolute Auto 1.5 X10*3/uL (1.2-4.9); MANUAL DIFF FLAG NO; Mean Corpuscular HGB Conc 33.8 g/dl (31.0-35.0); Mean Corpuscular Hemoglobin 30.8 pg (27.0-33.0); Mean Corpuscular Volume 91.1 fL (80.0-98.0); NRBC Abs Auto 0.000 X10*3/uL (0.0-0.012); NRBC Pct Auto 0.0 /100WBC (0.0-0.2); Platelet Count 260 X10*3/uL (160-400); Red Blood Count 3.70 X10*6/uL (4.20-5.50); White Blood Count 5.8 X10*3/uL (4.8-10.8)
[2025-05-15 09:42] LABS: Alanine Aminotransferase 13 U/L (0-31); Albumin Level 4.2 g/dL (3.5-5.0); Alkaline Phosphatase 79 U/L (39-117); Anion Gap 15 (12-20); Aspartate Amino Transferase 28 U/L (5-31); Blood Urea Nitrogen 18 mg/dL (9-16); Calcium 8.9 mg/dL (8.4-10.2); Carbon Dioxide 26 mmol/L (22-29); Chloride 104 mmol/L (96-108); Creatinine Clr Calc Pharmacy 44.8; Estimated Glomerular Filt Rate 42; Potassium 4.1 mmol/L (3.3-5.1); Sodium 141 mmol/L (135-145); Total Protein 6.9 g/dL (6.5-8.0)
[2025-05-15 10:14] VITALS: BP 145/75; PULSE 85; RESP 18; TEMP 36.4; O2SAT 100
[2025-05-15 11:28] LABS: Appearance Urine Clear; Glucose Urine UA >=1000 mg/dL (Negative); PH 6.0 (5.0-9.0); Specific Gravity - Urine >= 1.030 (1.005-1.025); UMIC TRIGGER UACC YES
[2025-05-15 11:30] LABS: UPreg QC Valid YES
[2025-05-15 12:05] VITALS: BP 145/75; PULSE 85; RESP 18; TEMP 36.4; O2SAT 100
== END 2025-05-15 12:06 | disposition home or self-care (01) ==
PROVIDERS: Registered Nurse Emergency; Emergency Provider Emergency Medicine Emergency Medical Services; PCP Nurse Practitioner Adult Health
DX: M54.6 Pain in thoracic spine (principal); E10.22 Type 1 diabetes mellitus with diabetic chronic kidney disease; N18.30 Chronic kidney disease, stage 3 unspecified; E10.43 Type 1 diabetes mellitus with diabetic autonomic (poly)neuropathy; G24.01 Drug induced subacute dyskinesia; Z79.899 Other long term (current) drug therapy
CPT/HCPCS: 36415; 74176; 80053; 81001; 81025; 85025; 96361; 96374; 99283; 99284; J1171

== ENCOUNTER → 2025-05-15 09:13 | Outpatient (BNV) | payer OTHER, SELFPAY | PROVIDERS: Emergency Provider Emergency Medicine Emergency Medical Services; PCP Nurse Practitioner Adult Health; Visit Provider Radiology Diagnostic Radiology | DX: R10.11 Right upper quadrant pain (principal) | CPT/HCPCS: 74176 ==